=== PATIENT | male | born 1960 | race Two or more races ===

== ENCOUNTER 2021-01-10 17:46 | Inpatient (IN) | payer OTHER ==
[~2021-01-10] VITALS: Ht 160 cm; Wt 57.0 kg
[2021-01-10 23:01] LABS: Basophils # (auto) 0 10 ^3/uL (0-0.2); Basophils % (auto) 0.3 % (0.0-2.0); Eosinophils # (auto) 0 10 ^3/uL (0-0.8); Hematocrit 48.7 % (41.0-53.0); Hemoglobin 16.6 g/dL (13.5-17.5); Lymphocytes # (auto) 1.2 10 ^3/uL (0.4-5.4); Lymphocytes % (auto) 20.8 % (10.0-50.0); Mean Corpuscular Volume 88.3 fL (80.0-100.0); Monocytes # (auto) 0.3 10 ^3/uL (0-1.3); Monocytes % (auto) 5.3 % (0.0-12.0); Neutrophils # (auto) 4.1 10 ^3/uL (1.6-8.6); Neutrophils % (auto) 73.6 % (37.0-80.0); Nucleated Red Blood Cells % 0.2 %; Red Blood Cells 5.52 10^6/uL (4.5-5.90); Red Cell Distribution Width 14.5 % (11.8-14.3); White Blood Cell 5.6 10^3/uL (4.4-10.8)
[2021-01-10 23:27] LABS: Calcium 8.1 mg/dL (8.5-10.1); Potassium 4.1 mmol/L (3.5-5.1)
[2021-01-10 23:35] LABS: Bilirubin, Total 0.3 mg/dL (0.2-1.0); CRP High Sensitivity 9.72 mg/dL (< 0.3); Total Protein 7.8 g/dL (6.4-8.2)
[2021-01-11] VITALS (8 sets, daily range): BP systolic 96–124; BP diastolic 51–75
[2021-01-11] MEDS ORDERED: SODIUM CHLORIDE 0.9% 1,000 ML IV ONE (01:45)
[2021-01-11] MEDS ORDERED: REMDESIVIR PER PHARMACY 0 ML IV SCH (01:45)
[2021-01-11] MEDS ORDERED: DexAMETHasone SOD PHOS 10MG/1ML VIAL INJ IV ONE (01:45)
[2021-01-11] MEDS ORDERED: DEXTROSE (50%) 50ML SYRG IV PRN (02:30)
[2021-01-11] MEDS ORDERED: ONDANSETRON HCL 4 MG/2 ML VIAL IV PRN (02:30)
[2021-01-11] MEDS ORDERED: TEMAZEPAM 15 MG CAP PO PRN (02:30)
[2021-01-11] MEDS ORDERED: NITROGLYCERIN 0.4 MG SL TAB SL PRN (02:30)
[2021-01-11] MEDS ORDERED: MORPHINE SULFATE INJECTION 2 MG/ML SYRG IV PRN (02:30)
[2021-01-11] MEDS: ACCU-CHEK COMFORT CURVE STRIP VI SCH ×4 (06:01→20:51)
[2021-01-11] MEDS: InsuLIN REG 1unit/0.01ml Soln (100units/ml) SC SCH ×4 (06:05→20:54)
[2021-01-11] MEDS: DexAMETHasone SOD PHOS 10MG/1ML VIAL INJ IV SCH (09:47)
[2021-01-11] MEDS: PANTOPRAZOLE 40 MG TAB PO SCH (09:48)
[2021-01-11] MEDS: ZINC SULFATE 220mg CAP or TAB PO SCH (09:48)
[2021-01-11] MEDS: ENOXAPARIN SOD 40 MG/0.4 ML SYRINGE SC SCH ×2 (09:49→20:54)
[2021-01-11] MEDS: ASCORBIC ACID 1,000 MG TAB PO SCH (09:49)
[2021-01-11] MEDS: CHOLECALCIFEROL (VITD3) 2,000 UNIT CAP/TAB PO SCH (09:49)
[2021-01-11] MEDS: AZITHROMYCIN 500MG/ 250ML 250 ML IV SCH (11:29)
[2021-01-11] MEDS ORDERED: REMDESIVIR 200 MG in NS 210ml LOADING DOSE ADULT IV ONE (15:00)
[2021-01-11] MEDS: ALBUTEROL SULF HFA 90MCG INH 200DOSE IN PRN (19:16)
[2021-01-12 05:00] VITALS: BP 123/72
[2021-01-12] MEDS: ACCU-CHEK COMFORT CURVE STRIP VI SCH ×4 (05:33→20:49)
[2021-01-12] MEDS: InsuLIN REG 1unit/0.01ml Soln (100units/ml) SC SCH ×4 (05:35→20:48)
[2021-01-12] MEDS: ALBUTEROL SULF HFA 90MCG INH 200DOSE IN PRN ×2 (06:55→20:22)
[2021-01-12 06:56] LABS: Basophils # (auto) 0 10 ^3/uL (0-0.2); Basophils % (auto) 0.1 % (0.0-2.0); Eosinophils # (auto) 0 10 ^3/uL (0-0.8); Hematocrit 46.9 % (41.0-53.0); Hemoglobin 15.7 g/dL (13.5-17.5); Lymphocytes # (auto) 1.2 10 ^3/uL (0.4-5.4); Lymphocytes % (auto) 23.7 % (10.0-50.0); Mean Corpuscular Hemoglobin 30.1 pg (28.0-32.0); Mean Corpuscular Hgb Conc. 33.5 g/dL (32.0-36.0); Mean Corpuscular Volume 89.9 fL (80.0-100.0); Monocytes # (auto) 0.7 10 ^3/uL (0-1.3); Monocytes % (auto) 13.6 % (0.0-12.0); Neutrophils # (auto) 3.2 10 ^3/uL (1.6-8.6); Neutrophils % (auto) 62.6 % (37.0-80.0); Nucleated Red Blood Cells % 0.3 %; Red Blood Cells 5.22 10^6/uL (4.5-5.90); Red Cell Distribution Width 14.9 % (11.8-14.3); White Blood Cell 5.1 10^3/uL (4.4-10.8)
[2021-01-12 07:05] LABS: Albumin 2.6 g/dL (3.4-5.0); BUN/Creatinine Ratio 27.1; Calcium 8.4 mg/dL (8.5-10.1)
[2021-01-12 07:17] LABS: Bilirubin, Total 0.2 mg/dL (0.2-1.0); Total Protein 6.2 g/dL (6.4-8.2)
[2021-01-12 08:00] VITALS: BP 97/57
[2021-01-12] MEDS: DexAMETHasone SOD PHOS 10MG/1ML VIAL INJ IV SCH (08:21)
[2021-01-12] MEDS: ASCORBIC ACID 1,000 MG TAB PO SCH (08:22)
[2021-01-12] MEDS: PANTOPRAZOLE 40 MG TAB PO SCH (08:22)
[2021-01-12] MEDS: ENOXAPARIN SOD 40 MG/0.4 ML SYRINGE SC SCH ×2 (08:22→20:49)
[2021-01-12] MEDS: CHOLECALCIFEROL (VITD3) 2,000 UNIT CAP/TAB PO SCH (08:22)
[2021-01-12] MEDS: ZINC SULFATE 220mg CAP or TAB PO SCH (08:22)
[2021-01-12 12:00] VITALS: BP_SYST 97
[2021-01-12] MEDS: REMDESIVIR 100mg 100 MG in SODIUM CHL 0.9% 230 ML IV SCH (15:43)
[2021-01-12] MEDS ORDERED: ACETAMINOPHEN 325 MG TAB PO PRN (15:45)
[2021-01-13] MEDS: AZITHROMYCIN 500MG/ 250ML 250 ML IV SCH (03:23)
[2021-01-13 05:01] VITALS: BP 99/62
[2021-01-13] MEDS: InsuLIN REG 1unit/0.01ml Soln (100units/ml) SC SCH ×4 (06:18→22:12)
[2021-01-13] MEDS: ACCU-CHEK COMFORT CURVE STRIP VI SCH ×4 (06:19→22:08)
[2021-01-13 06:25] LABS: Basophils # (auto) 0 10 ^3/uL (0-0.2); Basophils % (auto) 0.1 % (0.0-2.0); Eosinophils # (auto) 0 10 ^3/uL (0-0.8); Hematocrit 42.6 % (41.0-53.0); Lymphocytes % (auto) 13.3 % (10.0-50.0); Mean Corpuscular Hemoglobin 29.4 pg (28.0-32.0); Mean Corpuscular Hgb Conc. 32.9 g/dL (32.0-36.0); Mean Corpuscular Volume 89.4 fL (80.0-100.0); Monocytes # (auto) 0.7 10 ^3/uL (0-1.3); Neutrophils # (auto) 5.7 10 ^3/uL (1.6-8.6); Neutrophils % (auto) 76.6 % (37.0-80.0); Nucleated Red Blood Cells % 0.3 %; Red Blood Cells 4.77 10^6/uL (4.5-5.90); Red Cell Distribution Width 14.7 % (11.8-14.3); White Blood Cell 7.4 10^3/uL (4.4-10.8)
[2021-01-13 06:41] LABS: Potassium 4.3 mmol/L (3.5-5.1)
[2021-01-13 06:49] LABS: Albumin 2.4 g/dL (3.4-5.0); BUN/Creatinine Ratio 27.3; Bilirubin, Total 0.2 mg/dL (0.2-1.0); Calcium 7.8 mg/dL (8.5-10.1); Total Protein 5.9 g/dL (6.4-8.2)
[2021-01-13 09:00] VITALS: BP 117/66
[2021-01-13] MEDS: ENOXAPARIN SOD 40 MG/0.4 ML SYRINGE SC SCH ×2 (09:32→22:08)
[2021-01-13] MEDS: ASCORBIC ACID 1,000 MG TAB PO SCH (09:32)
[2021-01-13] MEDS: ZINC SULFATE 220mg CAP or TAB PO SCH (09:32)
[2021-01-13] MEDS: CHOLECALCIFEROL (VITD3) 2,000 UNIT CAP/TAB PO SCH (09:32)
[2021-01-13] MEDS: DexAMETHasone SOD PHOS 10MG/1ML VIAL INJ IV SCH (09:32)
[2021-01-13] MEDS: PANTOPRAZOLE 40 MG TAB PO SCH (09:32)
[2021-01-13 13:00] VITALS: BP 115/67
[2021-01-13] MEDS: REMDESIVIR 100mg 100 MG in SODIUM CHL 0.9% 230 ML IV SCH (14:41)
[2021-01-13 16:50] VITALS: BP 117/69
[2021-01-13] MEDS: ALBUTEROL SULF HFA 90MCG INH 200DOSE IN PRN (21:30)
[2021-01-13 22:00] VITALS: BP 104/55
[2021-01-14] MEDS: AZITHROMYCIN 500MG/ 250ML 250 ML IV SCH (02:33)
[2021-01-14 02:42] VITALS: BP 104/55
[2021-01-14 05:44] VITALS: BP 117/54
[2021-01-14] MEDS: ALBUTEROL SULF HFA 90MCG INH 200DOSE IN PRN (05:46)
[2021-01-14] MEDS: ACCU-CHEK COMFORT CURVE STRIP VI SCH ×4 (06:00→21:55)
[2021-01-14] MEDS: InsuLIN REG 1unit/0.01ml Soln (100units/ml) SC SCH ×4 (06:04→21:56)
[2021-01-14 07:02] LABS: Basophils # (auto) 0 10 ^3/uL (0-0.2); Basophils % (auto) 0.3 % (0.0-2.0); Eosinophils # (auto) 0 10 ^3/uL (0-0.8); Hematocrit 38.8 % (41.0-53.0); Hemoglobin 13.3 g/dL (13.5-17.5); Lymphocytes # (auto) 1.1 10 ^3/uL (0.4-5.4); Lymphocytes % (auto) 19.4 % (10.0-50.0); Mean Corpuscular Hemoglobin 30.1 pg (28.0-32.0); Mean Corpuscular Hgb Conc. 34.4 g/dL (32.0-36.0); Mean Corpuscular Volume 87.7 fL (80.0-100.0); Monocytes # (auto) 0.7 10 ^3/uL (0-1.3); Monocytes % (auto) 12.5 % (0.0-12.0); Neutrophils # (auto) 3.8 10 ^3/uL (1.6-8.6); Neutrophils % (auto) 67.8 % (37.0-80.0); Nucleated Red Blood Cells % 0.1 %; Red Blood Cells 4.43 10^6/uL (4.5-5.90); Red Cell Distribution Width 14.4 % (11.8-14.3); White Blood Cell 5.6 10^3/uL (4.4-10.8)
[2021-01-14 07:12] LABS: Albumin 2.2 g/dL (3.4-5.0); Calcium 7.6 mg/dL (8.5-10.1); Potassium 4.4 mmol/L (3.5-5.1)
[2021-01-14 07:15] LABS: BUN/Creatinine Ratio 33.3; Bilirubin, Total 0.2 mg/dL (0.2-1.0); Total Protein 5.4 g/dL (6.4-8.2)
[2021-01-14 09:00] VITALS: BP 111/65
[2021-01-14] MEDS: PANTOPRAZOLE 40 MG TAB PO SCH (09:59)
[2021-01-14] MEDS: DexAMETHasone SOD PHOS 10MG/1ML VIAL INJ IV SCH (09:59)
[2021-01-14] MEDS: ZINC SULFATE 220mg CAP or TAB PO SCH (10:00)
[2021-01-14] MEDS: ASCORBIC ACID 1,000 MG TAB PO SCH (10:00)
[2021-01-14] MEDS: CHOLECALCIFEROL (VITD3) 2,000 UNIT CAP/TAB PO SCH (10:00)
[2021-01-14] MEDS: ENOXAPARIN SOD 40 MG/0.4 ML SYRINGE SC SCH ×2 (10:00→21:44)
[2021-01-14 13:00] VITALS: BP 102/52
[2021-01-14] MEDS: REMDESIVIR 100mg 100 MG in SODIUM CHL 0.9% 230 ML IV SCH (14:36)
[2021-01-14 16:44] VITALS: BP 105/56
[2021-01-14 22:00] VITALS: BP 115/59
[2021-01-15] MEDS: AZITHROMYCIN 500MG/ 250ML 250 ML IV SCH (03:18)
[2021-01-15 05:00] VITALS: BP 120/69
[2021-01-15 05:58] LABS: Basophils # (auto) 0 10 ^3/uL (0-0.2); Basophils % (auto) 0.1 % (0.0-2.0); Eosinophils # (auto) 0 10 ^3/uL (0-0.8); Hematocrit 43.2 % (41.0-53.0); Hemoglobin 14.8 g/dL (13.5-17.5); Lymphocytes # (auto) 1.6 10 ^3/uL (0.4-5.4); Mean Corpuscular Hgb Conc. 34.2 g/dL (32.0-36.0); Monocytes # (auto) 1.1 10 ^3/uL (0-1.3); Monocytes % (auto) 13.7 % (0.0-12.0); Neutrophils # (auto) 5.4 10 ^3/uL (1.6-8.6); Neutrophils % (auto) 66.2 % (37.0-80.0); Nucleated Red Blood Cells % 0.1 %; Red Blood Cells 4.91 10^6/uL (4.5-5.90); Red Cell Distribution Width 14.1 % (11.8-14.3); White Blood Cell 8.1 10^3/uL (4.4-10.8)
[2021-01-15] MEDS: ALBUTEROL SULF HFA 90MCG INH 200DOSE IN PRN ×2 (06:05→19:33)
[2021-01-15 06:26] LABS: Potassium 3.9 mmol/L (3.5-5.1)
[2021-01-15] MEDS: ACCU-CHEK COMFORT CURVE STRIP VI SCH ×4 (06:34→21:07)
[2021-01-15 06:52] LABS: Albumin 2.6 g/dL (3.4-5.0); BUN/Creatinine Ratio 29.8; Bilirubin, Total 0.4 mg/dL (0.2-1.0); CRP High Sensitivity 1.97 mg/dL (< 0.3); Calcium 7.6 mg/dL (8.5-10.1); Total Protein 5.6 g/dL (6.4-8.2)
[2021-01-15] MEDS: InsuLIN REG 1unit/0.01ml Soln (100units/ml) SC SCH ×4 (06:57→21:15)
[2021-01-15 09:00] VITALS: BP 115/71
[2021-01-15] MEDS: DexAMETHasone SOD PHOS 10MG/1ML VIAL INJ IV SCH (09:25)
[2021-01-15] MEDS: CHOLECALCIFEROL (VITD3) 2,000 UNIT CAP/TAB PO SCH (09:26)
[2021-01-15] MEDS: ENOXAPARIN SOD 40 MG/0.4 ML SYRINGE SC SCH ×2 (09:26→21:06)
[2021-01-15] MEDS: ZINC SULFATE 220mg CAP or TAB PO SCH (09:26)
[2021-01-15] MEDS: ASCORBIC ACID 1,000 MG TAB PO SCH (09:26)
[2021-01-15] MEDS: PANTOPRAZOLE 40 MG TAB PO SCH (09:26)
[2021-01-15 14:07] VITALS: BP 116/67
[2021-01-15] MEDS: REMDESIVIR 100mg 100 MG in SODIUM CHL 0.9% 230 ML IV SCH (15:18)
[2021-01-15 16:32] VITALS: BP 109/59
[2021-01-15 22:04] VITALS: BP 102/52
[2021-01-16] MEDS: AZITHROMYCIN 500MG/ 250ML 250 ML IV SCH (02:28)
[2021-01-16 05:19] VITALS: BP 133/76
[2021-01-16] MEDS: ALBUTEROL SULF HFA 90MCG INH 200DOSE IN PRN (05:53)
[2021-01-16] MEDS: ACCU-CHEK COMFORT CURVE STRIP VI SCH ×2 (06:24→11:30)
[2021-01-16] MEDS: InsuLIN REG 1unit/0.01ml Soln (100units/ml) SC SCH ×2 (06:31→11:30)
[2021-01-16 08:44] VITALS: BP 109/78
[2021-01-16] MEDS: CHOLECALCIFEROL (VITD3) 2,000 UNIT CAP/TAB PO SCH (09:33)
[2021-01-16] MEDS: DexAMETHasone SOD PHOS 10MG/1ML VIAL INJ IV SCH (09:33)
[2021-01-16] MEDS: ZINC SULFATE 220mg CAP or TAB PO SCH (09:33)
[2021-01-16] MEDS: PANTOPRAZOLE 40 MG TAB PO SCH (09:33)
[2021-01-16] MEDS: ASCORBIC ACID 1,000 MG TAB PO SCH (09:33)
[2021-01-16] MEDS: ENOXAPARIN SOD 40 MG/0.4 ML SYRINGE SC SCH (09:34)
[2021-01-16 13:00] VITALS: BP 118/69
== END 2021-01-16 13:36 | disposition home or self-care (01) | DRG 137 ==
LOC: ER 17:46 → TELE 01-11 02:21 → TELE-EAST 01-11 04:08
PROVIDERS: ADMIT Nurse Practitioner; ATTEND Internal Medicine Pulmonary Disease
PROC: XW033E5 Introduction of Remdesivir Anti-infective into Peripheral Vein, Percutaneous Approach, New Technology Group 5 (ICD-10-PCS; principal; 2021-01-11)
DX: U07.1 COVID-19 (principal); J96.01 Acute respiratory failure with hypoxia; J12.82 Pneumonia due to coronavirus disease 2019; E43 Unspecified severe protein-calorie malnutrition; F17.210 Nicotine dependence, cigarettes, uncomplicated; E10.65 Type 1 diabetes mellitus with hyperglycemia; Z68.23 Body mass index [BMI] 23.0-23.9, adult; Z82.49 Family history of ischemic heart disease and other diseases of the circulatory system; Z89.511 Acquired absence of right leg below knee; Z71.6 Tobacco abuse counseling
CPT/HCPCS: 36415; 36600; 71045; 71250; 80053; 82550; 82728; 82805; 82962; 83605; 83615; 83735; 83880; 84484; 85025; 85379; 86141; 87040; 87426; 93005; 93970; 94640; 96361; 96374; G0378; J1100; J1815

== ENCOUNTER 2021-01-20 09:22 | Emergency (ER) | payer OTHER ==
[~2021-01-20] VITALS: Ht 160 cm; Wt 54.4 kg
[2021-01-20 10:28] VITALS: BP 127/69
[2021-01-20] MEDS ORDERED: MELO7.5T9 PO (11:16)
== END 2021-01-20 11:24 | disposition home or self-care (01) ==
LOC: ER 09:22
DX: M23.92 Unspecified internal derangement of left knee (principal); F17.210 Nicotine dependence, cigarettes, uncomplicated; E11.9 Type 2 diabetes mellitus without complications
CPT/HCPCS: 73562